=== PATIENT | female | born 1990 | race Caucasian/White ===

== ENCOUNTER 2020-12-08 06:12 | Day surgery (SDC) | payer BC ==
[2020-12-04 09:29] LABS: BASOPHILS 0.4 % (0-2); EOSINOPHILS 1.7 % (0-7); HEMATOCRIT 38.4 % (36.0-48.0); HEMOGLOBIN 12.5 g/dL (12-16); IMMATURE GRANULOCYTES 0.2 % (0-5); LYMPHOCYTE ABS# 1.48 10x3/uL (1.18-3.74); LYMPHOCYTES 30.6 % (15-50); MCHC 32.6 g/dL (31.0-37.0); MCV 92.3 fL (80.0-100.0); MEAN PLATELET VOLUME 10.1 fL (7.4-10.4); MONOCYTES 11.4 % (2-11); NEUTROPHILS 55.7 % (40-80); PLATELET COUNT 233 10x3/uL (130-400); RBC 4.16 10x6/uL (4.00-5.40); RDW 12.7 % (11.5-14.5); WBC 4.8 10x3/uL (4.8-10.8)
[~2020-12-08] VITALS: Ht 172.7 cm; Wt 73.0 kg
[~2020-12-08 06:12] MED LIST: MULTI-DAY VITAM1 TAB PO
[2020-12-08 06:40] VITALS: BP 109/71; Ht 172.7 cm; Wt 73.0 kg
[2020-12-08 06:48] LABS: HCG URINE NEGATIVE (NEGATIVE)
--- NOTE | 2020-12-08 09:37 | NUR ---
8239 DR. BRENNER ROUNDS WITH PT.S .
--- NOTE | 2020-12-08 10:21 | NUR ---
1018 DR. BRENNER PAGED TO REMIND THIS PT. NEEDS POST ORDERS AND A RX FOR HOME.
--- NOTE | 2020-12-08 10:31 | NUR ---
1027 DR. BRENNER HERE, RX. PROVIDED. SHOWN PICTURE OF PROCEDURE TO PT AND PT'S SPOUSE.
--- NOTE | 2020-12-18 12:17 | OP ---
PATIENT NAME: KEI VILLALPANDO MEDICAL RECORD: [id number] :88 LOCATION:D.OPS ADMISSION DATE: SURGEON: LEONARDO BRENNER DO DATE OF OPERATION: 12/08/2020 PREOPERATIVE DIAGNOSIS: Left ovarian cyst. POSTOPERATIVE DIAGNOSIS: Left ovarian cyst. PRIMARY SURGEON: Leonardo Brenner DO [employer] SURGEON: Dr. Zia Mondragon ANESTHESIA: General ET tube. PROCEDURE PERFORMED: Left oophorectomy and cystoscopy. FINDINGS: Normal appearing external genitalia, normal appearing vaginal vault, normal appearing cervix. Uterus retroverted, sounded to 8 cm. Large left ovarian cyst that encompassed the whole left ovary. No viable ovarian tissue discernible. Normal appearing uterus, bilateral fallopian tubes, and right ovary. Good ureteral jets bilaterally. SPECIMENS: Left ovary and cyst. Portion of left fallopian tube. ESTIMATED BLOOD LOSS: 20 mL. IV FLUIDS: 900 cc. URINE OUTPUT: 100 cc clear urine prior to cystoscopy. COMPLICATIONS: None. CONDITION: Stable. PROCEDURE: The risks, benefits, alternatives, and indications of the procedure were discussed with the patient. She voiced understanding of the procedure and signed the consent. She was taken to the OR where general anesthesia was administered and found to be adequate. She was placed in the dorsal lithotomy position. She was prepped and draped in the normal sterile fashion. A red rubber catheter was used to drain the bladder. A speculum was placed in the posterior aspect of the vagina and a single tooth tenaculum was used to grasp the anterior lip of the cervix. The uterus was sounded to 8 cm. A HUMI uterine manipulator was placed without difficulty and all other instruments were removed from the vagina with good hemostasis at the tenaculum site noted. Gloves were changed and attention was then turned to the abdomen. Marcaine was placed at [place] due to history of umbilical hernia repair. The OG tube had been placed. A 5-mm incision was created with the scalpel at [place] and a 5-mm port was placed with the laparoscope for visualization. Pneumoperitoneum was achieved to 15 mmHg. The patient was placed in Trendelenburg position and an 11-mm port was placed in the left lower quadrant under direct laparoscopic visualization. A 5-mm port was placed in the right lower quadrant 2 cm superior and 2 cm medial to the right ASIS under direct laparoscopic visualization as well. The bowel was displaced out of the pelvis with a blunt probe and the uterus was elevated out of the pelvis with manipulator. A large left ovarian OPERATIVE REPORT [id number] KEI VILLALPANDO cyst was noted and no viable ovarian tissue was able to be visualized at that time. Decision was made to remove the ovary. The Thunderbeat device was used to coagulate the IP ligament and the IP ligament was cut to size. Due to the size of ovarian cyst, there was difficulty visualizing the ureter traversing IP ligament. The cyst was placed in an Endobag and attempt was made to remove the cyst without draining. However, due to the size, it was unable to be removed without drainage. A large syringe was used to drain the fluid from the cyst in the Endobag. Care was taken to not leak any fluid into the abdomen; however, due to the size of the cyst, the cyst fell out of the Endobag and a small amount of simple-appearing fluid was leaked into the cavity. The cyst was then grasped again and placed in the Endobag and the rest of the fluid was removed in order to remove the ovary through the port site. The ovary was removed and sent to pathology. The pelvis was copiously irrigated. At that time, the ureter was able to be visualized. The pelvis was suctioned and irrigated again and suctioned second time. Hemostasis was noted at the oophorectomy site and Gavino was placed. All instruments were removed from the abdomen and the fascia at the 11-mm port was closed with 0 Vicryl. The pneumoperitoneum was released and the patient was taken out of Trendelenburg position. The skin was closed with 3-0 Monocryl and Dermabond covering. Due to difficulty visualizing the ureter prior to removal of the ovary, a cystoscopy was performed. Bladder was noted to be intact with good ureteral jets bilaterally. Cystoscope was removed and a HUMI manipulator was removed from the uterus with good hemostasis noted. The patient tolerated the procedure well. She was awakened and taken to the recovery room in stable condition. All needle/lap/sponge counts were correct x2. TRANSINT:[id number] Voice Confirmation ID: [id number] DOCUMENT ID: [id number] LEONARDO BRENNER DO at 1217 CC: [id number] DICTATION DATE: 12/18/2006 JEWELER APPRENTICE: 12/18/20 0949 [facility] 12/08/20 [place] [id number] [place] [id number]
== END 2020-12-08 11:35 | disposition home or self-care (01) ==
LOC: D.OPS 06:12
PROVIDERS: ATTEND Student in an Organized Health Care Education/Training Program
DX: N83.202 Unspecified ovarian cyst, left side (principal); Z01.419 Encounter for gynecological examination (general) (routine) without abnormal findings; N93.9 Abnormal uterine and vaginal bleeding, unspecified